=== PATIENT | female | born 1995 | race African-American/Black ===

== ENCOUNTER 2017-01-11 12:59 | Emergency (ER) | payer OTHER ==
[~2017-01-11] VITALS: Ht 175.3 cm; Wt 63.6 kg
[2017-01-11] MEDS ORDERED: NORCO, ANEXSIA 5/325MG TABLET (HYDROcodone/ACETAMINOPHEN) PO ONE (13:45)
[2017-01-11] MEDS ORDERED: NORCOTAB PO (14:06)
[2017-01-11 14:08] VITALS: BP 121/74
--- NOTE | 2017-01-12 06:31 | REP ---
LEFT ANKLE, FOUR VIEWS: HISTORY: Trauma. There is a nondisplaced fracture of the distal fibula. There is minimal widening of the medial knee joint space. There is no dislocation. Soft tissue swelling is present. IMPRESSION: Nondisplaced fracture of the distal fibula. Signed by Guanako Hill MD 01/12/2017 08:25 A
== END 2017-01-11 14:27 | disposition home or self-care (01) ==
LOC: M ED 12:59
DX: S82.832A Other fracture of upper and lower end of left fibula, initial encounter for closed fracture (principal); W01.198A Fall on same level from slipping, tripping and stumbling with subsequent striking against other object, initial encounter; Y92.410 Unspecified street and highway as the place of occurrence of the external cause; Y93.02 Activity, running; Y99.9 Unspecified external cause status

== ENCOUNTER 2017-09-06 19:39 | Emergency (ER) | payer OTHER ==
[2017-09-06 21:32] LABS: KETONE, URINE AUTO RFX NEGATIVE (NEGATIVE); MUCUS, URINE RFX SMALL (NEGATIVE); NITRITE, URINE AUTO RFX NEGATIVE (NEGATIVE); RBC, URINE AUTO RFX TNTC /HPF (0-3); SPECIFIC GRAVITY UR AUTO RFX 1.018 (1.002-1.035); SQUAM EPITHELIAL CELL UR AURFX 5 /HPF (0-6); TRANSITIONAL EPITHELIAL AU RFX 2 /HPF
[2017-09-06 21:33] LABS: LEUKOCYTE ESTERASE UR AUTO RFX 3+ (NEGATIVE); WBC, URINE AUTO RFX TNTC /HPF (0-3)
[2017-09-06] MEDS: PHENAZOPYRIDINE 100 MG TAB PO (22:03)
[2017-09-06] MEDS: ACETAMINOPHEN 325 MG TAB PO (22:03)
[2017-09-06] MEDS: CIPROFLOXACIN 500 MG TAB PO (22:04)
== END 2017-09-06 22:10 | disposition home or self-care (01) ==
LOC: M ED 19:39
DX: N30.01 Acute cystitis with hematuria (principal)
CPT/HCPCS: 81001